=== PATIENT | male | born 1965 | race African-American/Black ===

== ENCOUNTER 2017-05-21 09:27 | Emergency (ER) | payer BC ==
[~2017-05-21] VITALS: Ht 182.9 cm; Wt 110.5 kg
[~2017-05-21 09:27] MED LIST: ADULT LOW DOSE81 M1 PO; ALBUTEROL SULF8.5 GM IH; ATENOLOL50 MG PO; ERYTHROMYC1 APPLICAT LEFT EYE; MOTRIN600 MG PO; NEXIUM40 MG PO; PERCOCET 10/1 TABLE1 PO; SUBOXONE 8 MG-1 EAC2 SL; TENORMIN50 MG PO; TOPAMAX50 MG PO; ZITHROMAX Z-PA250 MG PO
[2017-05-21 10:05] LABS: EOSINOPHIL (%) 0 % (0-5); HEMATOCRIT 40.2 % (38.0-50.0); IMMATURE GRANULOCYTE (%) 0.1 % (0.0-0.7); INSTRUMENT ABS NEUTROPHIL CT 5.3 K/uL; LYMPHOCYTE COUNT 0.9 K/uL (1.0-2.8); MCHC 32.6 G/DL (30.0-36.0); MCV 79.9 FL (86-99); MEAN PLAT.VOLUME 11.5 uM^3 (9.0-12.4); MONOCYTE (%) 5.7 % (3-12); MONOCYTE COUNT 0.4 K/uL (0-0.8); NEUTROPHIL (%) 80.2 % (45-76); NEUTROPHIL COUNT 5.3 K/uL (1.8-6.4); PLATELET COUNT 198 K/uL (156-360); RBC DIS.WIDTH-CV 16.1 % (11.8-14.6); RBC DIS.WIDTH-SD 46.4 % (39-53); RED BLOOD COUNT 5.03 M/uL (4.00-5.50); WHITE BLOOD COUNT 6.7 K/uL (4.1-10.2)
[2017-05-21 10:14] LABS: CHLORIDE 101 mEq/L (99-109); POTASSIUM 3.7 mEq/L (3.7-5.4); SODIUM 139 mEq/L (136-147)
[2017-05-21 10:15] LABS: GLUCOSE 134 mg/dL (70-99)
[2017-05-21 10:17] LABS: ANION GAP 12 MEQ/L (2-14)
[2017-05-21 10:19] LABS: GFR ESTIMATE (CALCULATED) > 59 mL/min/
[2017-05-21 10:20] LABS: UREA NITROGEN (BUN) 18 mg/dL (9-23)
[2017-05-21] MEDS ORDERED: ROBITUSSIN NIG237 ML PO (12:55)
[2017-05-21] MEDS ORDERED: PROAIR HFA8.5 GM IH (12:55)
[2017-05-21] MEDS ORDERED: NAPROSYN500 MG PO (12:55)
[2017-05-21] MEDS ORDERED: TESSALON200 MG PO (12:55)
[2017-05-21 12:58] LABS: ADD MIUA? YES; BILIRUBIN NEGATIVE; BLOOD LARGE; COLOR YELLOW ((YELLOW)); GLUCOSE (STRIP) NEGATIVE; KETONES NEGATIVE; LEUKOCYTES NEGATIVE; NITRITE NEGATIVE; PROTEIN (STRIP) 100; SPECIFIC GRAVITY 1.021 (1.000-1.030); UROBILINOGEN 0.2 MG/DL (0.2-1.0)
[2017-05-21 13:19] VITALS: BP 125/94
[2017-05-21 13:21] LABS: BACTERIA 1+ /HPF; EPITHELIAL CELLS NONE SEEN /HPF; MUCUS 2+ /LPF; UCUL ADDED? NO; WHITE BLOOD CELLS NONE SEEN /HPF (0-5)
== END 2017-05-21 13:19 | disposition home or self-care (01) ==
LOC: EME 09:27
DX: J18.9 Pneumonia, unspecified organism (principal); M79.1 Myalgia; I10 Essential (primary) hypertension; F17.210 Nicotine dependence, cigarettes, uncomplicated
CPT/HCPCS: 71020; 80048; 81003; 83605; 85025; 94640; 99281; 99285; J1885; J7030